=== PATIENT | female | born 1955 | race Caucasian/White ===

== ENCOUNTER → 2017-10-27 | Outpatient (CLI) | payer OTHER ==
--- NOTE | 2017-10-27 11:12 | DIAGNOSTIC IMAGING REPORT ---
PET/CT SKULL-THIGH CLINICAL HISTORY: BREAST CANCER COMPARISON STUDY: No previous studies for comparison. FINDINGS: The patient was injected with 13.8 mCi of F 18 labeled FDG. Following the standard induction phase, PET/CT scanning was performed from the skull base to the upper thigh region. Activity within neck is felt to be physiologic. Within the chest, there are foci of increased FDG activity fusing to pathologically enlarged right axillary lymph nodes. The largest node measures 2.4 cm in diameter, and has an SUV maximum of 12.3. There is also a focus of increased FDG activity within the right breast at the level of a surgical biopsy clip. This is consistent with patient's known breast carcinoma. This hasn't SUV maximum of 7.3. There is a focus of mild increased activity within the left superior paratracheal region with an SUV maximum of 4.7. There is no CT correlate. There is a low-density 12 mm right paratracheal nodule, which is not FDG avid. There are foci of mild increased FDG activity fusing to multiple costovertebral junctions. The symmetry of the activity favors a degenerative etiology. Within the abdomen, there is no pathologic hepatic activity. Splenic activity is felt to be normal. There is no pathologic adrenal gland activity. There is physiologic urinary tract and bowel activity. IMPRESSION: 1. FDG avid focus within the right breast with an SUV maximum of 7.3. This fuses to the area of a surgical clip, and is consistent with the patient's known primary breast carcinoma 2. FDG avid right axillary lymphadenopathy demonstrating SUV maximum of 12.3 3. Nonspecific focus of mild increased FDG activity in the left superior paratracheal region with SUV maximum of 4.7. There is no CT correlate. Electronically signed by: Spencer Gutierrez M.D. 10/27/2017 11:11 AM Dictated Date/Time: 10/27/2017 11:00 AM
== END | disposition home or self-care (01) ==
LOC: C.PET 08:05
PROVIDERS: ATTEND Internal Medicine Hematology & Oncology
DX: C50.911 Malignant neoplasm of unspecified site of right female breast (principal); R59.0 Localized enlarged lymph nodes

== ENCOUNTER → 2018-01-20 | Outpatient (CLI) | payer OTHER ==
[~2018-01-20] MED LIST: DIAZ2TAB PO; HYDR-3983 PO; HYDR50TA3 PO; LISI-729 PO; MAGN400T6 PO; ONDA8TAB6 PO; POLY335019 PO; POTA10CA28 PO; PROC1TAB5 PO; PSYL48.59 PO
--- NOTE | 2018-01-20 18:06 | ECHOCARDIOGRAM REPORT ---
*NOTICE TO RECEIVING LIBERTARIAN AGENCY This information is strictly Confidential and protected under [place] law. [place] law prohibits you from making any further disclosure of this information unless further disclosure is expressly permitted by the written consent of the person to whom it pertains or is authorized by law. A general authorization for the release of medical or other information is not sufficient for this purpose. Hospital accepts no responsibility if the information is made available to any other person, INCLUDING THE PATIENT. Interpretation Summary * Name: LARISSA HARRIS Study Date: 01/20/2018 03:16 PM BP: 117/72 mmHg * Patient Location: [facility] HR: 91 * : 1955 (M/d/yyyy) Gender: Female Height: 66 in * Age: 62 yrs Ethnicity: [place] Weight: 176 lb * Ordering Physician: Bryan Bender * Referring Physician: Bryan Bender D.O. * Performed By: Nhi Salinas RDCS * * Reason For Study: NEOPLASM * BSA: 1.9 m2 * -- Conclusions -- * 1. Normal LV size. Borderline concentric LVH. * 2. Hyperdynamic LV. LVEF >70%. No regional wall motion abnormalities. * 3. Normal RV size and function. * 4. No significant valvular pathology. * 5. Normal estimated PA and RA pressures. * 6. No prior studies for comparison. Procedure Details * A complete two-dimensional transthoracic echocardiogram was performed (2D, M-mode, Doppler and color flow Doppler). Left Ventricle * The left ventricle is grossly normal size. * There is borderline concentric left ventricular hypertrophy. * Ejection Fraction = >70 %. Right Ventricle * The right ventricle is grossly normal size. * The right ventricular systolic function is normal as assessed by tricuspid annular plane systolic excursion (TAPSE) (normal >1.5 cm). Atria * The left atrial size is normal. * Right atrial size is normal. * No ASD detected; PFO is not assessed. Mitral Valve * The mitral valve is grossly normal. * There is no mitral valve stenosis. * Significant mitral regurgitation is absent. Tricuspid Valve * There is trace tricuspid regurgitation. Aortic Valve * The aortic valve opens well. * The aortic valve is trileaflet. * No hemodynamically significant valvular aortic stenosis. * There is no significant aortic regurgitation. Pulmonic Valve * The pulmonary valve is inadequately visualized, but the Doppler data is adequate for interpretation. * Pulmonic stenosis is absent. * There is no significant pulmonary regurgitation. Great Vessels * The aortic root and proximal ascending aorta are normal sized. Pericardium/Pleural * There is no pericardial effusion. Great Vessels * Normal inferior vena cava size and collapsability with sniff indicates a normal right atrial pressure of 3 mmHg * There is no evidence of pulmonary hypertension. The PA systolic pressure is less than 36 mmHg. MMode 2D Measurements and Calculations IVSd 1.2 cm IVSs 1.3 cm LVIDd 3.4 cm LVIDs 1.5 cm LVPWd 1.1 cm LVPWs 2.0 cm IVS/LVPW 1.1 FS 55.2 % EDV(Teich) 47.8 ml ESV(Teich) 6.4 ml EF(Teich) 86.7 % EDV(cubed) 39.7 ml ESV(cubed) 3.6 ml EF(cubed) 91.0 % % IVS thick 13.9 % % LVPW thick 79.0 % LV mass(C)d 119.7 grams LV mass(C)dI 63.2 grams/m\S\2 LV mass(C)s 90.7 grams LV mass(C)sI 47.9 grams/m\S\2 SV(Teich) 41.5 ml SI(Teich) 21.9 ml/m\S\2 SV(cubed) 36.1 ml SI(cubed) 19.1 ml/m\S\2 Ao root diam 2.9 cm Ao root area 6.8 cm\S\2 ACS 1.8 cm LA dimension 2.6 cm LA/Ao 0.87 LVAd ap4 21.8 cm\S\2 LVLd ap4 6.8 cm EDV(MOD-sp4) 56.8 ml EDV(sp4-el) 59.4 ml LVAs ap4 7.4 cm\S\2 LVLs ap4 4.7 cm ESV(MOD-sp4) 10.3 ml ESV(sp4-el) 9.9 ml EF(MOD-sp4) 81.9 % EF(sp4-el) 83.3 % LVAd ap2 24.1 cm\S\2 LVLd ap2 7.9 cm EDV(MOD-sp2) 63.8 ml EDV(sp2-el) 62.4 ml LVAs ap2 8.2 cm\S\2 LVLs ap2 5.7 cm ESV(MOD-sp2) 10.4 ml ESV(sp2-el) 10.0 ml EF(MOD-sp2) 83.7 % EF(sp2-el) 84.0 % LVLd %diff 14.1 % EDV(MOD-bp) 63.3 ml LVLs %diff 16.6 % ESV(MOD-bp) 11.2 ml EF(MOD-bp) 82.2 % SV(MOD-sp4) 46.5 ml SI(MOD-sp4) 24.5 ml/m\S\2 SV(MOD-sp2) 53.4 ml SI(MOD-sp2) 28.2 ml/m\S\2 SV(MOD-bp) 52.1 ml SI(MOD-bp) 27.5 ml/m\S\2 SV(sp4-el) 49.4 ml SI(sp4-el) 26.1 ml/m\S\2 SV(sp2-el) 52.4 ml SI(sp2-el) 27.7 ml/m\S\2 Doppler Measurements and Calculations MV E max lizette 87.4 cm/sec MV A max lizette 125.6 cm/sec MV E/A 0.70 MV dec time 0.21 sec Ao V2 max 137.1 cm/sec Ao max PG 7.5 mmHg Ao max PG (full) -0.17 mmHg LV V1 max PG 7.7 mmHg LV V1 max 138.6 cm/sec PA V2 max 128.6 cm/sec PA max PG 6.6 mmHg TR max lizette 139.8 cm/sec
== END | disposition home or self-care (01) ==
LOC: C.CPL 15:08
PROVIDERS: ATTEND Internal Medicine Hematology & Oncology
DX: C50.919 Malignant neoplasm of unspecified site of unspecified female breast (principal)

== ENCOUNTER → 2018-03-15 | Outpatient (CLI) | payer OTHER ==
[~2018-03-15] MED LIST changes: +ONDA-170 PO; -ONDA8TAB6 PO
--- NOTE | 2018-03-16 11:46 | ECHOCARDIOGRAM REPORT ---
*NOTICE TO RECEIVING DEMOCRAT AGENCY This information is strictly Confidential and protected under [place] law. [place] law prohibits you from making any further disclosure of this information unless further disclosure is expressly permitted by the written consent of the person to whom it pertains or is authorized by law. A general authorization for the release of medical or other information is not sufficient for this purpose. Hospital accepts no responsibility if the information is made available to any other person, INCLUDING THE PATIENT. Interpretation Summary * Name: LARISSA HARRIS Study Date: 03/15/2018 02:02 PM BP: 127/62 mmHg * Patient Location: [facility] HR: 73 * : 1955 (M/d/yyyy) Gender: Female Height: 66 in * Age: 62 yrs Ethnicity: [place] Weight: 176 lb * Ordering Physician: Bryan Bender * Referring Physician: Bryan Bender D.O. * Performed By: Nhi Salinas RDCS * * Reason For Study: Breast Cancer Female (C50.811) * BSA: 1.9 m2 * -- Conclusions -- * The left ventricle is hyperdynamic. * No regional wall motion abnormalities noted. * Ejection Fraction = >70 %. * There is mild concentric left ventricular hypertrophy. * Grade I diastolic dysfunction, (abnormal relaxation pattern). * No significant valvular pathology. * Compared to 01/20/2018 study, no significant change. Procedure Details * A complete two-dimensional transthoracic echocardiogram was performed (2D, M-mode, Doppler and color flow Doppler). Left Ventricle * The left ventricle is normal in size. * There is mild concentric left ventricular hypertrophy. * Ejection Fraction = >70 %. * The left ventricle is hyperdynamic. * No regional wall motion abnormalities noted. Right Ventricle * The right ventricle is normal size. * The right ventricular systolic function is normal as assessed by tricuspid annular plane systolic excursion (TAPSE) (normal >1.5 cm). Atria * The left atrial size is normal. * Right atrial size is normal. * No ASD detected; PFO is not assessed. Mitral Valve * The mitral valve anatomy is normal. * There is no mitral valve stenosis. * Significant mitral regurgitation is absent. Tricuspid Valve * The tricuspid valve anatomy is normal. * There is no tricuspid stenosis. * There is trace tricuspid regurgitation. * Right ventricular systolic pressure is normal. Aortic Valve * The aortic valve is normal in structure and function. * No hemodynamically significant valvular aortic stenosis. * No aortic regurgitation is present. Pulmonic Valve * The pulmonary valve is not well seen, but the Doppler examination is normal without significant regurgitation or stenosis. Great Vessels * The aortic root is normal size. * The pulmonary is not well visualized. Pericardium/Pleural * There is no pericardial effusion. Great Vessels * Normal inferior vena cava size and collapsability with sniff indicates a normal right atrial pressure of 3 mmHg Left Ventricular Diastolic Function * Grade I diastolic dysfunction, (abnormal relaxation pattern). MMode 2D Measurements and Calculations IVSd 1.1 cm IVSs 1.5 cm LVIDd 3.5 cm LVIDs 2.1 cm LVPWd 1.3 cm LVPWs 1.3 cm IVS/LVPW 0.83 FS 39.8 % EDV(Teich) 52.3 ml ESV(Teich) 14.9 ml EF(Teich) 71.5 % EDV(cubed) 44.3 ml ESV(cubed) 9.7 ml EF(cubed) 78.2 % % IVS thick 39.1 % % LVPW thick 0.12 % LV mass(C)d 136.0 grams LV mass(C)dI 71.8 grams/m\S\2 LV mass(C)s 92.2 grams LV mass(C)sI 48.7 grams/m\S\2 SV(Teich) 37.3 ml SI(Teich) 19.7 ml/m\S\2 SV(cubed) 34.7 ml SI(cubed) 18.3 ml/m\S\2 Ao root diam 2.9 cm Ao root area 6.7 cm\S\2 ACS 1.7 cm LA dimension 2.7 cm LA/Ao 0.94 LVAd ap4 20.3 cm\S\2 LVLd ap4 7.0 cm EDV(MOD-sp4) 49.9 ml EDV(sp4-el) 49.9 ml LVAs ap4 9.0 cm\S\2 LVLs ap4 4.9 cm ESV(MOD-sp4) 14.1 ml ESV(sp4-el) 13.9 ml EF(MOD-sp4) 71.7 % EF(sp4-el) 72.1 % LVAd ap2 27.1 cm\S\2 LVLd ap2 8.0 cm EDV(MOD-sp2) 78.3 ml EDV(sp2-el) 78.1 ml LVAs ap2 14.8 cm\S\2 LVLs ap2 6.6 cm ESV(MOD-sp2) 27.6 ml ESV(sp2-el) 27.8 ml EF(MOD-sp2) 64.7 % EF(sp2-el) 64.4 % LVLd %diff 12.4 % EDV(MOD-bp) 66.3 ml LVLs %diff 26.1 % ESV(MOD-bp) 22.9 ml EF(MOD-bp) 65.5 % SV(MOD-sp4) 35.8 ml SI(MOD-sp4) 18.9 ml/m\S\2 SV(MOD-sp2) 50.6 ml SI(MOD-sp2) 26.7 ml/m\S\2 SV(MOD-bp) 43.4 ml SI(MOD-bp) 22.9 ml/m\S\2 SV(sp4-el) 35.9 ml SI(sp4-el) 19.0 ml/m\S\2 SV(sp2-el) 50.3 ml SI(sp2-el) 26.5 ml/m\S\2 Doppler Measurements and Calculations MV E max lizette 103.5 cm/sec MV A max lizette 97.1 cm/sec MV E/A 1.1 MV dec time 0.28 sec Ao V2 max 131.9 cm/sec Ao max PG 7.0 mmHg Ao max PG (full) 1.6 mmHg LV V1 max PG 5.4 mmHg LV V1 max 115.9 cm/sec PA V2 max 95.8 cm/sec PA max PG 3.7 mmHg TR max lizette 214.8 cm/sec
== END | disposition home or self-care (01) ==
LOC: C.CPL 13:35
PROVIDERS: ATTEND Internal Medicine Hematology & Oncology
DX: C50.811 Malignant neoplasm of overlapping sites of right female breast (principal)

== ENCOUNTER → 2018-06-13 | Outpatient (CLI) | payer OTHER ==
[~2018-06-13] MED LIST changes: +CHOL2000 PO; -DIAZ2TAB PO; +DOCU-94 PO; +EFF75 PO; -HYDR-3983 PO; -HYDR50TA3 PO; +PROC10TA PO; -PROC1TAB5 PO; -PSYL48.59 PO; +WARF4TAB PO
--- NOTE | 2018-06-14 15:25 | ECHOCARDIOGRAM REPORT ---
*NOTICE TO RECEIVING LIBERTARIAN AGENCY This information is strictly Confidential and protected under [place] law. [place] law prohibits you from making any further disclosure of this information unless further disclosure is expressly permitted by the written consent of the person to whom it pertains or is authorized by law. A general authorization for the release of medical or other information is not sufficient for this purpose. Hospital accepts no responsibility if the information is made available to any other person, INCLUDING THE PATIENT. Interpretation Summary * Name: LARISSA HARRIS Study Date: 06/13/2018 12:50 PM BP: 142/65 mmHg * Patient Location: [facility] HR: 78 * : 1955 (M/d/yyyy) Gender: Female Height: 66 in * Age: 63 yrs Ethnicity: [place] Weight: 180 lb * Ordering Physician: Bryan Bender * Referring Physician: Bryan Bender D.O. * Performed By: Vanessa Martinez RDCS * * Reason For Study: BREAST CA * BSA: 1.9 m2 * -- Conclusions -- * There is borderline concentric left ventricular hypertrophy. * Left ventricular systolic function is normal. * Right ventricular systolic pressure is elevated at 30-40mmHg. * Small pericardial effusion * Compared to an echocardiogram from 03/2018, there is no significant change. Procedure Details * A complete two-dimensional transthoracic echocardiogram was performed (2D, M-mode, Doppler and color flow Doppler). Left Ventricle * The left ventricle is normal in size. * There is borderline concentric left ventricular hypertrophy. * Ejection Fraction = >70 %. * Left ventricular systolic function is normal. * The left ventricular wall motion is normal. Right Ventricle * The right ventricle is normal in size and function. Atria * The left atrial size is normal. * Right atrial size is normal. Mitral Valve * The mitral valve is grossly normal. * Significant mitral regurgitation is absent. Tricuspid Valve * The tricuspid valve anatomy is normal. * There is trace tricuspid regurgitation. * Right ventricular systolic pressure is elevated at 30-40mmHg. Aortic Valve * The aortic valve is normal in structure and function. * No hemodynamically significant valvular aortic stenosis. * There is no significant aortic regurgitation. Pulmonic Valve * The pulmonic valve is not well visualized. Pericardium/Pleural * Small pericardial effusion MMode 2D Measurements and Calculations IVSd 1.0 cm IVSs 1.6 cm LVIDd 4.2 cm LVIDs 2.5 cm LVPWd 1.2 cm LVPWs 2.0 cm IVS/LVPW 0.87 FS 40.3 % EDV(Teich) 79.2 ml ESV(Teich) 22.7 ml EF(Teich) 71.4 % EDV(cubed) 74.8 ml ESV(cubed) 15.9 ml EF(cubed) 78.7 % % IVS thick 52.9 % % LVPW thick 65.4 % LV mass(C)d 161.5 grams LV mass(C)dI 84.4 grams/m\S\2 LV mass(C)s 174.6 grams LV mass(C)sI 91.3 grams/m\S\2 SV(Teich) 56.5 ml SI(Teich) 29.6 ml/m\S\2 SV(cubed) 58.9 ml SI(cubed) 30.8 ml/m\S\2 ACS 1.3 cm LA dimension 3.1 cm asc Aorta Diam 3.0 cm LVOT diam 1.7 cm LVOT area 2.4 cm\S\2 LVAd ap4 27.3 cm\S\2 LVLd ap4 7.4 cm EDV(MOD-sp4) 82.8 ml EDV(sp4-el) 86.0 ml LVAs ap4 12.2 cm\S\2 LVLs ap4 5.2 cm ESV(MOD-sp4) 24.2 ml ESV(sp4-el) 24.5 ml EF(MOD-sp4) 70.8 % EF(sp4-el) 71.5 % LVAd ap2 21.2 cm\S\2 LVLd ap2 6.8 cm EDV(MOD-sp2) 52.9 ml EDV(sp2-el) 56.0 ml LVAs ap2 9.7 cm\S\2 LVLs ap2 5.3 cm ESV(MOD-sp2) 14.7 ml ESV(sp2-el) 15.1 ml EF(MOD-sp2) 72.2 % EF(sp2-el) 73.0 % LVLd %diff -8.06 % EDV(MOD-bp) 68.1 ml LVLs %diff 2.0 % ESV(MOD-bp) 18.9 ml EF(MOD-bp) 72.3 % SV(MOD-sp4) 58.6 ml SI(MOD-sp4) 30.6 ml/m\S\2 SV(MOD-sp2) 38.2 ml SI(MOD-sp2) 20.0 ml/m\S\2 SV(MOD-bp) 49.2 ml SI(MOD-bp) 25.7 ml/m\S\2 SV(sp4-el) 61.5 ml SI(sp4-el) 32.2 ml/m\S\2 SV(sp2-el) 40.9 ml SI(sp2-el) 21.4 ml/m\S\2 Doppler Measurements and Calculations MV E max lizette 108.7 cm/sec MV A max lizette 84.6 cm/sec MV E/A 1.3 MV dec time 0.24 sec Ao V2 max 131.1 cm/sec Ao max PG 6.9 mmHg Ao max PG (full) 2.3 mmHg DIVINE(V,A) 2.0 cm\S\2 DIVINE(V,D) 2.0 cm\S\2 LV V1 max PG 4.6 mmHg LV V1 max 106.8 cm/sec PA V2 max 74.7 cm/sec PA max PG 2.2 mmHg TR max lizette 260.6 cm/sec
== END | disposition home or self-care (01) ==
LOC: C.CPL 12:37
PROVIDERS: ATTEND Internal Medicine Hematology & Oncology
DX: C50.811 Malignant neoplasm of overlapping sites of right female breast (principal)

== ENCOUNTER → 2018-07-06 | Outpatient (CLI) | payer OTHER ==
[~2018-07-06] MED LIST changes: +PSYL48.59
[2018-07-06 10:20] LABS: BASO % 0.5 %; BASO ABS # 0.02 K/uL (0-0.2); EOS % 3.5 %; EOS ABS # 0.13 K/uL (0-0.5); HEMATOCRIT 36.7 % (37-47); HEMOGLOBIN 12.3 g/dL (12.0-16.0); LYMPH % 18.3 %; LYMPH ABS # 0.67 K/uL (1.2-3.4); MEAN CELL VOLUME 94.8 fL (80-100); MEAN CORPUSCULAR HEMOGLOBIN 31.8 pg (25-34); MEAN CORPUSCULAR HGB CONC 33.5 g/dl (32-36); MEAN PLATELET VOLUME 11.1 fL (7.4-10.4); MONO % 10.4 %; MONO ABS # 0.38 K/uL (0.11-0.59); NEUT % 67.3 %; NEUT ABS # 2.47 K/uL (1.4-6.5); PLATELET COUNT 159 K/uL (130-400); RED CELL DISTRIBUTION WIDTH CV 13.2 % (11.5-14.5); RED CELL DISTRIBUTION WIDTH SD 45.5 fL (36.4-46.3); WHITE BLOOD COUNT 3.67 K/uL (4.8-10.8)
[2018-07-06 10:40] LABS: ALBUMIN 3.7 gm/dl (3.4-5.0); ALT/SGPT 26 U/L (12-78); AST/SGOT 16 U/L (15-37); BLOOD UREA NITROGEN 11 mg/dl (7-18); CALCIUM 8.8 mg/dl (8.5-10.1); CARBON DIOXIDE 28 mmol/L (21-32); GLUCOSE 86 mg/dl (70-99); POTASSIUM 4.3 mmol/L (3.5-5.1); SODIUM 140 mmol/L (136-145)
[2018-07-06 11:03] LABS: ALKALINE PHOSPHATASE 73 U/L (45-117); TOTAL PROTEIN 6.9 gm/dl (6.4-8.2)
== END | disposition home or self-care (01) ==
LOC: C.LABSPEC 10:13
PROVIDERS: ATTEND Internal Medicine Hematology & Oncology
DX: C50.811 Malignant neoplasm of overlapping sites of right female breast (principal)